=== PATIENT | female | born 1995 | race American Indian/Alaskan Native ===

== ENCOUNTER 2021-06-09 16:18 | Emergency (ER) | payer OTHER ==
[~2021-06-09] VITALS: Ht 160 cm; Wt 117.9 kg
[2021-06-09 20:26] LABS: Urine Bacteria FEW /hpf (None Seen); Urine Blood Negative /uL (Negative); Urine Specific Gravity 1.019 (1.001-1.035); Urine WBC 1 /hpf (0 - 5)
[2021-06-09] MEDS ORDERED: DIAZ10TA3 PO (21:51)
[2021-06-09] MEDS ORDERED: IBUP800T26 PO (21:51)
[2021-06-09 22:20] VITALS: BP 97/57
== END 2021-06-09 22:31 | disposition home or self-care (01) ==
LOC: ER 16:18
DX: R07.89 Other chest pain (principal); M79.18 Myalgia, other site; V43.52XA Car driver injured in collision with other type car in traffic accident, initial encounter; Y93.89 Activity, other specified; Y92.488 Other paved roadways as the place of occurrence of the external cause; Y99.8 Other external cause status
CPT/HCPCS: 71046; 72170; 74176; 81001; 81025